=== PATIENT | male | born 1930 | race Caucasian/White ===

== ENCOUNTER 2018-01-30 07:56 | Observation (INO) | payer MEDICARE ==
--- NOTE | 2018-01-30 06:46 | History and Physical - [facility] ---
CHIEF COMPLAINT/HISTORY OF CHIEF COMPLAINT: This patient with a history of intractable lumbar radiculopathy presents today for a spinal opioid infusion trial with Hydromorphone. The history is chronic. There has been no trauma. Treatment history has been extensive. Physical therapy, biomechanical treatments, even a spinal cord stimulator has been unsuccessful. PAST MEDICAL HISTORY: Chronic obstructive pulmonary disease, and coronary artery disease. PAST SURGICAL HISTORY: Coronary artery bypass. EMPLOYMENT STATUS: Retired. MEDICATIONS ON ADMISSION: List to be provided. ALLERGIES: None. FAMILY/PSYCHOSOCIAL HISTORY: Social history - Smoking and caffeine. Family history - Cancer. SYSTEMS REVIEW: The patient is appropriate in no acute distress. The remainder of the system review is positive for glasses, dentures, respiratory problems, and degenerative arthritis. PHYSICAL EXAMINATION: Height is 5'8", weight is 170. No vital signs. HEENT: Within normal limits. LUNGS: Clear. HEART: Rapid and regular. ABDOMEN: Nontender. MUSCULOSKELETAL: Examination of the musculoskeletal system shows diffuse tenderness throughout the lumbar spine. Range of motion produces pain in both legs across the front and back surface. There are mild sensory abnormalities and mild weakness. An assistive device is utilized. NEUROLOGIC: Cranial nerves are intact. IMPRESSION: LUMBAR RADICULOPATHY, ICD-10 CODE M54.16 AND M54.17. PLAN: The patient is here for implanted spinal catheter and infusion trial of Hydromorphone to determine if the implantation of a permanent system can be of any value in pain control. The potential risks, side effects and complications including paralysis, spinal cord injury, and spinal headache have been reviewed and discussed. He understands the incision for the implantation of spinal catheter, the epidural blood patch, and being flat for four and slowly elevated for one. An overnight stay will be evaluated. All other instructions were provided. He was put in contact with a clinical specialist from [facility] who also explained the procedure, risks, side effects, and complications. He has consented along with the family. JOB NUMBER: [id number] [facility]
[~2018-01-30 07:56] MED LIST: ACETAMINOPHEN 1,000 MG/100 ML BTL IV ONE; CEFAZOLIN 2 Gram 2 GM/50 ML BAG IVPB ONE; FAMOTIDINE 20MG TABLET PO ONE; HYDROMORPHONE PF 2MG/ML AMP 0.008 MG in 0.9 % SODIUM CHLORIDE 10ML VIA 0.996 ML IV ONE; HYDROMORPHONE PF 2MG/ML AMP 8 MG in 0.9 % SODIUM CHLORIDE 500ML 496 ML IV ONE; MECLIZINE 25 MG TABLET PO ONE; METOCLOPRAMIDE 10 MG TABLET PO ONE
[2018-01-30] MEDS ORDERED: PROPOFOL 10 MG/ML VIAL IV ONE (07:57)
[2018-01-30] MEDS ORDERED: CEFAZOLIN 1G VIAL IM ONE (07:57)
[2018-01-30] MEDS ORDERED: BUPIVACAINE 0.5% W/EPI MPF 30 ML VIAL IVP ONE (07:57)
[2018-01-30] MEDS ORDERED: HYDROMORPHONE HCL 2 MG/ML VIAL IV ONE (07:57)
[2018-01-30] MEDS ORDERED: LIDOCAINE 2% MDV (20MG/ML) 20ML VIAL IV ONE (07:57)
[2018-01-30] MEDS ORDERED: MIDAZOLAM HCL 2MG/2ML VIAL IV ONE (07:57)
[2018-01-30] MEDS ORDERED: LIDOCAINE 1% W/EPI 1:200,000 MPF 30ML SQ ONE (07:57)
[2018-01-30] MEDS ORDERED: 0.9 % SODIUM CHLORIDE 10 ML VIAL IVP ONE (07:57)
[2018-01-30] MEDS ORDERED: METOCLOPRAMIDE 10 MG TABLET PO PRN (12:46)
[2018-01-30] MEDS ORDERED: ACETAMINOPHEN 325 MG TAB PO PRN ×2 (12:46)
[2018-01-30] MEDS ORDERED: AL HYDROX/MAG HYDROX 30ML UD PO PRN (12:46)
[2018-01-30] MEDS ORDERED: NALOXONE 0.4 MG/1 ML VIAL IVP PRN (12:46)
[2018-01-30] MEDS ORDERED: SENNOSIDES/DOCUSATE SODIUM UD CAPSULE PO PRN ×2 (12:46)
[2018-01-30] MEDS ORDERED: TEMAZEPAM 15 MG CAPSULE PO PRN ×2 (12:46)
[2018-01-30] MEDS ORDERED: DIPHENHYDRAMINE HCL 25 MG CAPSULE PO PRN ×2 (12:46)
[2018-01-30] MEDS ORDERED: DIPHENHYDRAMINE HCL 50 MG/ML VIAL IVP PRN ×2 (12:46)
[2018-01-30] MEDS ORDERED: OXYCODONE/APAP 10MG-325MG TABLET PO PRN (12:46)
[2018-01-30] MEDS ORDERED: HYDROCODONE/APAP 7.5/325MG TABLET PO PRN ×2 (12:46)
[2018-01-30] MEDS ORDERED: HYDROMORPHONE HCL 2 MG/ML VIAL IM PRN ×2 (12:46)
[2018-01-30] MEDS: RINGERS SOLUTION,LACTATED 1,000 ML IV SCH ×2 (16:19→23:02)
[2018-01-30] MEDS ORDERED: ALBUTEROL HFA 8 GM INHALER INH PRN (17:01)
[2018-01-30] MEDS: OXYCODONE/APAP 10MG-325MG TABLET PO PRN ×2 (17:18→21:12)
[2018-01-30] MEDS: METOCLOPRAMIDE HCL 10 MG/2 ML VIAL IVP PRN (17:19)
[2018-01-30] MEDS: PATIENT OWN MED: ALFUZOSIN 10 MG PO SCH (18:06)
[2018-01-30] MEDS: PATIENT OWN MED: DULOXETINE 30 MG PO SCH (18:07)
[2018-01-30] MEDS: PATIENT OWN MED: SIMVASTATIN 40 MG PO SCH (18:07)
[2018-01-30] MEDS: PATIENT OWN MED: FINASTERIDE 5 MG PO SCH (18:07)
[2018-01-30] MEDS: CEFAZOLIN 2 Gram 2 GM/50 ML BAG IVPB SCH (19:50)
[2018-01-30] MEDS: PATIENT OWN MED: TRAZODONE 50 MG PO SCH (19:57)
[2018-01-30] MEDS ORDERED: SENNA DOCUSATE PO SCH (20:00)
[2018-01-31] MEDS: OXYCODONE/APAP 10MG-325MG TABLET PO PRN (02:37)
[2018-01-31] MEDS: CEFAZOLIN 2 Gram 2 GM/50 ML BAG IVPB SCH ×2 (02:38→12:35)
[2018-01-31] MEDS: METOCLOPRAMIDE HCL 10 MG/2 ML VIAL IVP PRN (12:45)
[2018-01-31] MEDS ORDERED: UMECLIDINIUM BROMIDE (INCRUSE) 62.5MCG IH SCH (18:00)
[2018-01-31] MEDS: PATIENT OWN MED: FINASTERIDE 5 MG PO SCH (20:17)
[2018-01-31] MEDS: PATIENT OWN MED: TRAZODONE 50 MG PO SCH (20:17)
[2018-01-31] MEDS: PATIENT OWN MED: DULOXETINE 30 MG PO SCH (20:18)
[2018-01-31] MEDS: PATIENT OWN MED: SIMVASTATIN 40 MG PO SCH (20:18)
[2018-01-31] MEDS: PATIENT OWN MED: ALFUZOSIN 10 MG PO SCH (20:20)
[2018-01-31] MEDS ORDERED: SENNOSIDES/DOCUSATE SODIUM UD CAPSULE PO SCH (20:30)
[2018-01-31] MEDS ORDERED: TRAZODONE 50 MG TABLET PO SCH (20:30)
[2018-01-31] MEDS ORDERED: TRAMADOL HCL 50 MG TABLET PO PRN (20:41)
[2018-01-31] MEDS: RINGERS SOLUTION,LACTATED 1,000 ML IV SCH (20:51)
--- NOTE | 2018-02-02 06:36 | Operative Note ---
DATE OF SURGERY: 01/30/18 PREOPERATIVE DIAGNOSIS: INTRACTABLE LUMBAR RADICULOPATHY. OPERATION: 1. FLUOROSCOPICALLY-GUIDED ACCESS SPINAL SPACE AT L3/4, PLACEMENT OF THIN- WALLED SPINAL CATHETER POSITIONED T11/12. 2. DIAGNOSTIC MYELOGRAPHY WITH RADIOLOGIC SUPERVISION AND INTERPRETATION. 3. SPINAL OPIOID BOLUS HYDROMORPHONE 0.002 MG. 4. INCISION, SUBCUTANEOUS DISSECTION, AND ANCHORING OF SPINAL CATHETER TO SUPRASPINOUS FASCIA USING AN ANCHOR AND NONABSORBABLE SUTURE. 5. INCISION, SUBCUTANEOUS DISSECTION, AND CREATION OF SUBCUTANEOUS POUCH AT LEFT FLANK; SITE PICKED BY PATIENT ULTIMATELY FOR PUMP. 6. TUNNELING BETWEEN MIDLINE INCISION AND FLANK INCISION EXTENDING SPINAL CATHETER INTO FLANK POUCH. 7. SPINAL CATHETER REVISED, RESECTED TO INTERFACE WITH SECOND CATHETER COMPONENT BY WAY OF A CONNECTOR. SECOND CATHETER COMPONENT TUNNELED 6 CM SUPERIOR EXITING SKIN. INTERFACED TO EXTERNAL PUMP SET TO DELIVER HYDROMORPHONE AT 0.08 MG A DAY. 8. CLOSURE OF MIDLINE INCISION USING RUNNING NYLON. CLOSURE OF FLANK INCISION; RUNNING NYLON. 9. EPIDURAL BLOOD PATCH AT L4/5, 20 ML AUTOLOGOUS BLOOD STERILE TECHNIQUE FROM LEFT ANTECUBITAL. 10. PLACEMENT OF DRESSINGS SECURING CATHETER AND ALL CONNECTIONS UNDER STERILE DRESSING. PATIENT TRANSPORTED TO THE RECOVERY ROOM STABLE, FULL FUNCTIONALITY OF THE EXTREMITIES, SLIGHTLY SEDATED, NO UNUSUAL PAIN OR PROBLEMS, FLAT, PILLOW UNDER HEAD AND KNEES. SURGEON: LUCIA FARIA D.O. ANESTHESIA: LOCAL SEDATION. ANESTHESIA PROVIDER: SAMARA FINLEY CRNA. INDICATION: This patient presents with a history of intractable lumbar radiculopathy. Due to the failure of all therapy, he is here for an implanted spinal catheter infusion trial with Hydromorphone to determine if the implantation of a permanent system can be of any value in pain control. PROCEDURE: Intravenous line, vital sign monitoring, IV sedation, prepped, draped sterile technique. Under imaging, with the patient prone, the spinal interspace at L3/4 was marked, infiltrated, and a 20-gauge spinal needle beveled with a long axis in a paramedian approach was used to gain entry into the spinal space. This was accomplished under AP and lateral imaging. With CSF flow, a thin-walled spinal catheter was advanced and positioned T11/12. Diagnostic myelography was performed through the catheter; the resulting flow characteristics were appropriate for the space. Smooth linear flow of contrast was identified. CSF through the catheter still identified. The catheter was clamped. Skin above and below the needle infiltrated, incision made, and subcutaneous dissection was conducted to the supraspinous fascia. The needle was removed and the anchor was anchored to the supraspinous fascia with an anchoring device and nonabsorbable suture. At the left flank, which ultimately will be the site for the pump, skin infiltrated, incision made, and subcutaneous dissection was conducted to form a small pouch subcutaneously. A tunneling tool was used to carry the spinal catheter into the flank pouch. In the pouch, the spinal catheter was interfaced with a second catheter component. The second catheter component was tunneled 6 cm above the site exiting the skin. The external catheter was then interfaced to an external pump, which was set to deliver Hydromorphone at 0.08 mg a day. The midline incision was closed with Vicryl for fascia and a running nylon for skin. The pouch at the flank was closed with running nylon. At L4/5, skin infiltrated and an 18-gauge Tuohy needle with [id number] into the epidural space and simultaneously, 20 mL autologous blood drawn sterile technique from the left antecubital. This blood was placed onto the field and an epidural blood patch was performed at this site with this blood. Needle removed. Sterile dressing applied over the incisions and then securing catheter and all connections under sterile dressing. He was then transported to the Recovery Room stable, full functionality of the extremities, and no unusual pain. He was flat with pillow under head and knees. He will be kept flat for four hours, slowly elevated for one, and then considered for discharge although because of age, he will be kept overnight for observation and discharged in the morning. DISCHARGE INSTRUCTIONS: 1. Sites remain clean and dry. No showering or bathing in any way that would disrupt dressings. Although the [facility] will allow showering, he should not sit in water. 2. Standard medications resumed including Levaquin, the antibiotic, 500 mg once a day for 14 days. 3. The patient will return to the office in the next 3-5 days for a possible increase. We will evaluate the need by contacting the patient at home. A series of three increases will be set up over the next two-week trial period at which point he will be considered a possible candidate for implant. All other instructions provided, numbers to contact with problems given. He was then prepared for discharge. cc: Dr. Garcia JOB [facility]BER: [id number] [facility]
--- NOTE | 2018-02-03 09:34 | RADIOLOGY REPORT ---
EXAM: SPINE, 1 VIEW HISTORY: PAIN PUMP TRIAL. TECHNIQUE: A single AP view of the thoracolumbar spine. COMPARISON: None. FINDINGS: The patient is post-op sternotomy. No battery pack is identified overlying either side of the abdomen. There is some faint catheter-like material overlying the left side of the abdomen and there is a tiny metallic- like dot overlying the level of the presumed T11-12 interspace, which may be the superior extent of a pain pump catheter although difficult to be certain, given the limited visualization. Degenerative change in the lumbar spine. Tiny metallic density left lower quadrant approximately 2 cm in length is presumably external to the patient and may be related to the catheter and clinical correlation is suggested. IMPRESSION: TINY FAINT METALLIC DOT-LIKE DENSITY OVERLYING THE PRESUMED T11-12 INTERSPACE MAY REPRESENT THE SUPERIOR EXTENT OF THE PAIN PUMP CATHETER AND CLINICAL CORRELATION IS SUGGESTED, DESCRIBED ABOVE. JOB NUMBER: [id number] [facility]
== END 2018-02-01 09:45 | disposition home or self-care (01) ==
LOC: SUR 07:56 → MEDSURG 14:29 → SUR 01-31 15:59 → MEDSURG 01-31 16:00 → SUR 02-01 09:45
PROVIDERS: ADMIT Pain Medicine Interventional Pain Medicine; ATTEND Pain Medicine Interventional Pain Medicine
DX: R33.9 Retention of urine, unspecified (principal); M54.16 Radiculopathy, lumbar region; E78.00 Pure hypercholesterolemia, unspecified
CPT/HCPCS: 72020; 94640; J0690; J1170; J2765; J7040; J7120

== ENCOUNTER 2018-02-13 11:50 | Day surgery (SDC) | payer MEDICARE ==
--- NOTE | 2018-02-13 07:12 | History and Physical - [facility] ---
CHIEF COMPLAINT/HISTORY OF CHIEF COMPLAINT: This patient with a history of an intractable lumbar radiculopathy has an implanted spinal catheter infusion trial with Hydromorphone which was unsuccessful. He is here for catheter removal. PAST MEDICAL HISTORY: Unchanged. PAST SURGICAL HISTORY: Unchanged. MEDICATIONS ON ADMISSION: Unchanged. ALLERGIES: None. FAMILY/PSYCHOSOCIAL HISTORY: Social history - Unchanged. Family history - Unchanged. SYSTEMS REVIEW: The patient is appropriate in no acute distress. PHYSICAL EXAMINATION: Height is 5'8", weight is 170. HEENT: Within normal limits. LUNGS: Clear. HEART: Regular rate and rhythm. ABDOMEN: Nontender. MUSCULOSKELETAL: Examination of the musculoskeletal system shows the dressing for the implanted catheter trial to be intact. External infusion device is infusing appropriately. He had a recent reduction to prevent withdrawal syndrome during the explant. His chronic pain pattern is a low back with a bilateral lower extremity component. Mild sensory and mild motor loss to both lower extremities. An assistive device is required for ambulation. NEUROLOGIC: Cranial nerves are intact. IMPRESSION: 1. INTRACTABLE LUMBAR RADICULOPATHY, ICD-10 CODE M54.16 AND M54.17. 2. IMPLANTED SPINAL CATHETER INFUSION TRIAL USING HYDROMORPHONE. PLAN: Due to the failure of the implanted catheter trial, the patient is here for removal of the catheter on an outpatient basis. We will evaluate the patient in 7-10 days. JOB NUMBER: [id number] [facility]
[~2018-02-13 11:50] MED LIST changes: +HYDROMORPHONE HCL 0.04 GM in 0.9 % SODIUM CHLORIDE 10ML VIA 20 ML IV ONE; -HYDROMORPHONE PF 2MG/ML AMP 8 MG in 0.9 % SODIUM CHLORIDE 500ML 496 ML IV ONE
[2018-02-13] MEDS ORDERED: LIDOCAINE 2% MDV (20MG/ML) 20ML VIAL IV ONE (11:51)
[2018-02-13] MEDS ORDERED: LIDOCAINE 1% W/EPI 1:200,000 MPF 30ML SQ ONE (11:51)
[2018-02-13] MEDS ORDERED: BUPIVACAINE 0.5% W/EPI MPF 30 ML VIAL IVP ONE (11:51)
[2018-02-13] MEDS ORDERED: MIDAZOLAM HCL 2MG/2ML VIAL IV ONE (11:51)
[2018-02-13] MEDS ORDERED: PROPOFOL 10 MG/ML VIAL IV ONE (11:51)
[2018-02-13] MEDS ORDERED: **ER** KETAMINE HCL 500MG/10ML VIAL IV ONE (11:51)
[2018-02-13] MEDS ORDERED: CEFAZOLIN 1G VIAL IM ONE (11:51)
[2018-02-13] MEDS ORDERED: 0.9 % SODIUM CHLORIDE 10 ML VIAL IVP ONE (11:51)
--- NOTE | 2018-02-15 16:02 | Operative Note ---
DATE: 02/13/2018. PREOPERATIVE DIAGNOSES: 1. INTRACTABLE LUMBAR RADICULOPATHY, ICD-10 CODE M54.16 AND M54.17. 2. IMPLANTED SPINAL CATHETER INFUSION TRIAL WITH HYDROMORPHONE UNSUCCESSFUL. PROCEDURES: 1. Incision, subcutaneous dissection, and removal of external catheter. 2. Incision, subcutaneous dissection, and removal of indwelling spinal catheter. SURGEON: Dmitri Cadena D.O. ANESTHESIA: Local sedation. ANESTHESIA PROVIDER: Avani Brown CRNA. INDICATIONS: This patient presents with a history of intractable lumbar radiculopathy. Due to the failure of therapies a spinal infusion trial with hydromorphone was conducted which was unsuccessful. He is here for removal of the implanted catheter and external catheter components. DESCRIPTION OF PROCEDURE: Intravenous lines, vital sign monitoring, and intravenous sedation. Prepped and draped with sterile technique. At the left flank, a site picked for implantation of an external catheter, the skin was infiltrated. An incision was made and subcutaneous dissection was conducted to the pouch. The connection between the internal and external catheter was clamped and cut, and the external catheter was removed by pulling away from the incision. The midline incision was then infiltrated. An incision was made and subcutaneous dissection was conducted to the implanted catheter. The suture was removed and the anchor was removed. A pursestring suture was placed to stop cerebrospinal fluid leak. The internal catheter was then removed intact. The radiopaque bead, or tip, was identified confirming removal of the implanted catheter component. Antibiotic irrigation and Bovie for hemostasis. Vicryl was used for fascia and digna were used for the skin. Dressings were placed. He was transported to the recovery room stable with no side effects from the procedure. DISCHARGE INSTRUCTIONS: 1. The sites are to remain clean and dry. No showering or bathing in any way that would disrupt dressings. If this happens, contact the clinic. 2. Standard medications to be resumed including Levaquin the antibiotic 500 mg once a day for another seven days. 3. The office is to contact the patient in 24 to 48 hours set up an appointment in 7 to 10 days to evaluate the sites. Until then activity levels should stay low. 4. All other instructions were provided including numbers to contact with problems. He will be discharged. JOB NUMBER: [id number] cc: Stephanie Nur
== END 2018-02-13 15:40 | disposition home or self-care (01) ==
LOC: SUR 11:50
PROVIDERS: ATTEND Pain Medicine Interventional Pain Medicine
DX: M54.16 Radiculopathy, lumbar region (principal); M54.17 Radiculopathy, lumbosacral region; E78.00 Pure hypercholesterolemia, unspecified; J44.9 Chronic obstructive pulmonary disease, unspecified; I25.10 Atherosclerotic heart disease of native coronary artery without angina pectoris; K21.9 Gastro-esophageal reflux disease without esophagitis; F17.210 Nicotine dependence, cigarettes, uncomplicated
CPT/HCPCS: 62355; 62365; 00300; J0690; J1170